=== PATIENT | male | born 1990 | race Caucasian/White ===

== ENCOUNTER 2019-01-30 14:00 | Emergency (ER) | payer OTHER, SELFPAY ==
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
[2019-01-30] MEDS ORDERED: Sodium Bicarbonate 2.5 MEQ/5 ML VIAL ONE (15:31)
[2019-01-30] MEDS ORDERED: Adacel (T-DAP) 0.5 ML SYRINGE ONE (15:32)
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
[2019-01-30] MEDS ORDERED: Bacitracin Zinc 1 Packet ONE (15:47)
== END 2019-01-30 15:51 | disposition home or self-care (01) ==
LOC: BURERS 14:00
DX: S51.001A Unspecified open wound of right elbow, initial encounter (principal); S00.81XA Abrasion of other part of head, initial encounter; S80.212A Abrasion, left knee, initial encounter; S80.211A Abrasion, right knee, initial encounter; F17.210 Nicotine dependence, cigarettes, uncomplicated; V23.4XXA Motorcycle driver injured in collision with car, pick-up truck or van in traffic accident, initial encounter
CPT/HCPCS: 70450; 72125; 90715; 96372